=== PATIENT | female | born 1955 | race Caucasian/White ===

== ENCOUNTER 2024-07-23 13:26 | Outpatient (CLI) | payer BC | END 2024-07-23 13:27 | disposition home or self-care (01) | LOC: BICCT 13:26 | PROVIDERS: ATTEND Student in an Organized Health Care Education/Training Program | DX: C34.12 Malignant neoplasm of upper lobe, left bronchus or lung (principal); Z90.2 Acquired absence of lung [part of] | CPT/HCPCS: 71250 ==